=== PATIENT | female | born 1990 | race Caucasian/White ===

== ENCOUNTER 2017-08-08 13:02 | Inpatient (IN) | payer MEDICAID, OTHER ==
[2017-08-08] MEDS ORDERED: STADOL IV PRN (14:59)
[2017-08-08] MEDS ORDERED: BRETHINE SUB-Q PRN (14:59)
[2017-08-08] MEDS ORDERED: BRETHINE IVP PRN (14:59)
[2017-08-08] MEDS ORDERED: MINERAL OIL PO PRN (14:59)
[2017-08-08] MEDS ORDERED: ePHEDrine SULFATE IV PRN ×2 (14:59→21:50)
[2017-08-08] MEDS ORDERED: XYLOCAINE 2% INFILTRATI ONE (14:59)
[2017-08-08] MEDS ORDERED: SUBLIMAZE IV PRN (14:59)
[2017-08-08] MEDS ORDERED: PITOCin/NS 20 UNIT/1000ML DRIP 20 UNITS/1,000 ML BAG IV SCH (15:00)
--- NOTE | 2017-08-08 15:08 | History and Physical Report ---
History of Present Illness Date of examination: 08/08/17 Date of admission: 08/08/17 13:02 Chief complaint: Leaking Fluid History of present illness: Patient was seen at the clinic today for routine OB visit with c/o leaking fluid intermittently x6 days. She didn't f/u for evaluation because she attributed it to vaginal discharge. She had +ferning, + nitrazine and pooling during speculum exam. She denies fever or palpitations. She reports frequent but irregular ctxs q 5 to 30 mins since 3am. She denies vaginal bleeding. She is GBS positive. Past History Past Medical History: no pertinent history Past Surgical History: no surgical history Family/Genetic History: none Social history: no significant social history - Obstetrical History Expected Date of Delivery: 08/15/17 Actual Gestation: 39 Week(s) 0 Day(s) : 6 Para: 2 Hx # Term Pregnancies: 2 Number of Pregnancies: 0 Spontaneous Abortions: 2 Induced : 1 Number of Living Children: 2 Medications and Allergies Allergies Allergy/AdvReac Type Severity Reaction Status Date / Time No Known Allergies Allergy Verified 10/26/13 06:09 Home Medications Medication Instructions Recorded Confirmed Last Taken Type Fluconazole [Fluconazole] 150 mg PO ONCE 10/26/13 08/08/17 Unknown History Ondansetron [Zofran Odt] 8 mg PO DAILY 10/26/13 08/08/17 Unknown History Pnv with Ca,No.71/Iron/FA 27.08 mg PO DAILY 10/26/13 08/08/17 08/07/17 20:00 History [Prenaplus Tablet] Ibuprofen [Motrin 800 MG tab] 800 mg PO Q8HR PRN #30 tablet 03/01/16 08/08/17 Unknown Rx Active Meds: Active Medications Influenza Virus Vaccine Quadrival (Fluarix Quad 2776-7362(36 Mos+) 0.5 ml IM .ONCE ONE Stop: 08/09/17 12:01 Review of Systems All systems: negative - Vital Signs Vital signs: Vital Signs Temp Pulse Resp BP 98.2 F 87 18 117/71 08/08/17 13:58 08/08/17 13:58 08/08/17 13:58 08/08/17 13:58 Temp Pulse Resp BP Pulse Ox 98.2 F 87 18 117/71 08/08/17 13:58 08/08/17 14:02 08/08/17 13:58 08/08/17 14:02 - Physical Exam Breasts: Positive: deferred Cardiovascular: Regular rate, Normal S1, Normal S2 Lungs: Positive: Clear to auscultation, Normal air movement Abdomen: Positive: normal appearance, soft Genitourinary (Female): Positive: normal external genitalia, normal perenium Vulva: both: normal Vagina: Positive: normal moisture Uterus: Positive: normal size, normal contour Anus/Rectum: Positive: normal perianal skin Extremities: Positive: normal Deep Tendon Reflex Grade: Normal +2 - Obstetrical FHR: auscultation normal, category 1 FHR comments: baseline 140, mod dalia, + accels, no decels Uterine Contraction Monitor Mode: External Cervical Dilatation: 3.5 Cervical Effacement Percentage: 50 station: -3 Uterine Contraction Frequency (min): Irritability Results All other labs normal. Assessment and Plan A: 27yo G 6 P 2 0 3 2 at 39w0d by LMP SROM Category I FHR GBS positive No active Labor P: Admit to L&D Start antibiotics for GBS prophylaxis Start Oxytocin for labor augmentation Anticipate vaginal delivery
[2017-08-08 15:14] LABS: Hematocrit 37.1 % (30.3-42.9); Hemoglobin 12.1 gm/dl (10.1-14.3); Mean Corpuscular HGB Conc 33 % (30-34); Mean Corpuscular Hemoglobin 30 pg (28-32); Mean Corpuscular Volume 92 fl (79-97); Platelet Count 187 K/mm3 (140-440); Red Blood Count 4.03 M/mm3 (3.65-5.03); Red Cell Distribution Width 14.3 % (13.2-15.2); White Blood Count 9.9 K/mm3 (4.5-11.0)
[2017-08-08] MEDS ORDERED: POLYCILLIN/NS 2 GM/100 ML 2 GM/100 ML BAG IV ONE (15:30)
[2017-08-08] MEDS: LACTATED RINGERS 1,000 ML IV SCH ×3 (15:54→22:02)
[2017-08-08] MEDS: PITOCin/NS 30 UNIT/500ML 30 UNITS/500 ML BAG IV SCH ×8 (16:57→22:27)
--- NOTE | 2017-08-08 17:46 | Event Note ---
Date: 08/08/17 Assumed care of patient today at 16:45. Patient has had prolonged spontaneous rupture of membranes (pt. is unsure exactly when her water broke). Pitocin has been started for augmentation of labor. Ampicillin is being given for GBS prophylaxis. FHR baseline 155 with moderate variability and accelerations. SVE 5 /50/-1/cephalic. Consulted with Dr. Romero re: prolonged rupture of membranes and he states he agrees with plan of care.
[2017-08-08] MEDS: POLYCILLIN/NS 1 GM/50 ML 1 GM/50 ML BAG IV SCH (19:09)
[2017-08-08] MEDS ORDERED: NARCAN 2 MG/2 ML IV PRN (21:50)
--- NOTE | 2017-08-08 21:50 | Anesthesia Consultation ---
Anesthesia Consult and Med Hx Date of service: 08/08/17 - Airway Anesthetic Teeth Evaluation: Good ROM Head & Neck: Adequate Mental/Hyoid Distance: Adequate Mallampati Class: Class II Intubation Access Assessment: Probably Good - Pulmonary Exam CTA: Yes - Cardiac Exam Cardiac Exam: RRR - Pre-Operative Health Status ASA Pre-Surgery Classification: ASA2 Proposed Anesthetic Plan: Epidural - Pulmonary Hx Asthma: No COPD: No Hx Pneumonia: No - Cardiovascular System Hx Hypertension: No - Central Nervous System Hx Seizures: No Hx Psychiatric Problems: No - Endocrine Hx Renal Disease: No Hx End Stage Renal Disease: No Hx Hypothyroidism: No Hx Hyperthyroidism: No - Hematic Hx Anemia: No Hx Sickle Cell Disease: No - Other Systems Hx Alcohol Use: Yes (none during )
[2017-08-08] MEDS ORDERED: fentaNYL-BUPIV 2 MCG/ML-0.125% 200 MCG/100 ML BAG EPIDURAL SCH (22:00)
[2017-08-08] MEDS ORDERED: ZOFRAN ONE (23:11)
[2017-08-08] MEDS ORDERED: ZOFRAN IM ONE (23:14)
[2017-08-09] MEDS: POLYCILLIN/NS 1 GM/50 ML 1 GM/50 ML BAG IV SCH (00:04)
[2017-08-09] MEDS: PITOCin/NS 30 UNIT/500ML 30 UNITS/500 ML BAG IV SCH ×2 (00:43→01:39)
[2017-08-09] MEDS ORDERED: DULCOLAX PR PRN (04:24)
[2017-08-09] MEDS ORDERED: NORCO 5/325 PO PRN (04:24)
[2017-08-09] MEDS ORDERED: MILK OF MAGNESIA PO PRN (04:24)
[2017-08-09] MEDS ORDERED: TUCKS PAD TP PRN (04:24)
--- NOTE | 2017-08-09 04:35 | Procedure Note ---
OB Delivery Note - Delivery Date of Delivery: 08/09/17 Surgeon: HARLAN LIZARRAGA Estimated blood loss: 300cc - Vaginal Delivery presentation: vertex Delivery position: OA Intrapartum events: none Delivery induction: none Delivery augmentation: pitocin Delivery monitor: external FHT, external uterine Route of delivery: Delivery placenta: spontaneous Delivery cord: 3 umbilical vessels Episiotomy: none Delivery laceration: none Anesthesia: epidural Delivery comments: Spontaneous vaginal delivery of liveborn male infant weighing 7 lb. 7 oz. over intact perineum with apgars of 8/9. Baby was born easily and without difficulty and was placed immediately on patient's chest after . Spontaneous cry and respirations. Baby bulb suctioned. 3 vessel cord double clamped and cut. Baby taken to radiant warmer and NICU team who had been called to delivery due to prolonged spontaneous rupture of membranes. Spontaneous delivery of intact placenta and membranes by galloway mechanism. EBL 300 ml. Fundus firm and midline. Pitocin to IV fluids after delivery of placenta. Vaginal sweep negative. No lacerations noted on careful inspection of vulva and perineum. Sponge count correct. Mother and baby stable in birthing room.
[2017-08-09] MEDS ORDERED: SODIUM CHLORIDE FLUSH SYRINGE 10 ML IV NR (05:00)
[2017-08-09] MEDS: MOTRIN PO SCH ×3 (05:49→23:23)
[2017-08-09] MEDS ORDERED: M-M-R II VACCINE SUB-Q ONE ×2 (06:20→13:15)
[2017-08-09] MEDS ORDERED: Fluarix Quad 2017-2018(36 MOS+ IM ONE ×2 (12:00→13:15)
[2017-08-09 16:22] LABS: Hematocrit 31.1 % (30.3-42.9); Hemoglobin 10.4 gm/dl (10.1-14.3)
[2017-08-10] MEDS: MOTRIN PO SCH ×3 (04:57→22:09)
[2017-08-10] MEDS ORDERED: BOOSTRIX IM ONE (06:00)
--- NOTE | 2017-08-10 12:51 | Progress Note ---
Assessment and Plan A: day 1 S/P . Anemia. P: Supplement with iron. Depo Provera prior to hospital discharge. Discussed with patient warning signs and comfort measures. Advised pt. to avoid IC, avoid driving, avoid lifting or heavy housework. Advised pt. to follow up with [facility] in 6 weeks. Advised pt. to continue her vitamins and iron at home. Pt. voiced understanding of the above instructions. Subjective - Subjective Date of service: 08/10/17 Principal diagnosis: day 1 S/P Interval history: day 1 S/P viable male infant. Patient is doing well. She is voiding without difficulty and ambulating well. She is tolerating a regular diet without nausea or vomiting. Patient reports a small amount of lochia with no large clots. Patient denies headache, chest pain, cough, shortness of breath , nausea or vomiting, abdominal pain, leg pain, heavy vaginal bleeding, or symptoms of depression. Patient wants to be discharged tomorrow AM GIRMA. Patient wants Depo Provera for control. Patient reports: appetite normal, voiding normally, pain well controlled, flatus , ambulating normally [place]: doing well Objective - Vital Signs Latest vital signs: Vital Signs Temp Pulse Resp BP BP Pulse Ox 08/10/17 07:33 98.0 F 76 18 107/66 99 08/10/17 04:57 18 08/10/17 00:40 98.7 F 77 18 109/67 08/09/17 23:23 18 08/09/17 16:34 98.2 F 85 18 109/70 99 Intake and Output 08/09/17 08/10/17 08/10/17 23:59 07:59 15:59 Intake Total 480 260 Balance 480 260 Intake: Oral 240 Intake, Free Water 240 260 Other: Total, Intake Amount 240 # Voids Void 1 2 - Exam Cardiovascular: Present: Regular rate, Normal S1, Normal S2 Lungs: Present: Clear to auscultation Abdomen: Present: normal appearance, soft, normal bowel sounds. Absent: distention, tenderness, guarding, rigidity Uterus: Present: normal, firm, fundal height below umbilicus. Absent: bogginess , tenderness Extremities: Present: normal. Absent: tenderness, edema
--- NOTE | 2017-08-10 12:55 | Discharge Summary ---
Providers - Providers Date of Admission: 08/08/17 13:02 Date of discharge: 08/11/17 Attending physician: LIZBET MARRERO MD None Primary care physician: LIZBET MARRERO MD Hospitalization Reason for admission: active labor Delivery: Episiotomy: none Laceration: none Other procedures: none complications: none Discharge diagnosis: IUP at term delivered baby: male Pertinent studies: Labs Hospital course: Normal hospital course Condition at discharge: Good Disposition: DC-01 TO HOME OR SELFCARE - Discharge Diagnoses (1) Post term , delivered Status: Acute Plan - Provider Discharge Summary Activity: routine, no sex for 6 weeks, no heavy lifting 4 weeks, no strenuous exercise Diet: routine Instructions: routine Additional instructions: Call your doctor immediately for: * Fever > 100.5 * Heavy vaginal bleeding ( >1 pad per hour) * Severe persistent headache * Shortness of breath * Reddened, hot, painful area to leg or breast - Follow up plan Follow up: LIZBET MARRERO MD [Primary Care Provider] - 6 Weeks
[2017-08-10] MEDS: FEOSOL PO SCH ×2 (16:31→22:08)
[2017-08-11] MEDS: MOTRIN PO SCH (04:11)
[2017-08-11] MEDS ORDERED: DEPO-PROVERA (CONTRACEPTION) IM ONE (08:00)
[2017-08-11] MEDS: FEOSOL PO SCH ×2 (08:42→08:46)
[2017-08-11 09:57] VITALS: BP 105/72
== END 2017-08-11 10:20 | disposition home or self-care (01) | DRG 775 ==
LOC: LD 13:02 → OB 08-09 05:34
PROVIDERS: ADMIT Obstetrics & Gynecology; ATTEND Obstetrics & Gynecology
PROC: 10E0XZZ Delivery of Products of Conception, External Approach (ICD-10-PCS; principal; 2017-08-09)
PROC: 3E0R3BZ Introduction of Anesthetic Agent into Spinal Canal, Percutaneous Approach (ICD-10-PCS; 2017-08-09)
PROC: 00HU33Z Insertion of Infusion Device into Spinal Canal, Percutaneous Approach (ICD-10-PCS; 2017-08-09)
PROC: 3E0234Z Introduction of Serum, Toxoid and Vaccine into Muscle, Percutaneous Approach (ICD-10-PCS; 2017-08-09)
DX: O99.824 Streptococcus B carrier state complicating childbirth (principal); Z3A.39 39 weeks gestation of pregnancy; Z37.0 Single live birth; O90.81 Anemia of the puerperium; D64.9 Anemia, unspecified
CPT/HCPCS: 36415; 85014; 85018; 85027; 86592; 86850; 86900; 86901; 90471; 90472; 90686; 90715; 99211; G0463; J0290; J1050; J2405; J2590; J7120

== ENCOUNTER 2019-03-15 12:06 | Outpatient (CLI) | payer MEDICAID ==
[2019-03-15 13:06] LABS: Bilirubin,Urine NEG (Negative); Blood,Urine SM (Negative); Color,Urine Yellow (Yellow); Mucus,Urine FEW /HPF; Protein,Urine <15 mg/dL mg/dL (Negative); Urobilinogen,Urine < 2.0 mg/dL (<2.0); WBC,Urine < 1.0 /HPF (0.0-6.0)
[2019-03-15] MEDS ORDERED: LACTATED RINGERS 1,000 ML ONE (14:25)
[2019-03-15] MEDS ORDERED: BRETHINE SUB-Q ONE (17:28)
[2019-03-15] MEDS ORDERED: LACTATED RINGERS 1,000 ML IV ONE (17:50)
[2019-03-15] MEDS ORDERED: LACTATED RINGERS 1,000 ML IV SCH (18:00)
[2019-03-15 18:39] VITALS: BP 108/55
== END 2019-03-15 19:20 | disposition home or self-care (01) ==
LOC: TRG 12:06
PROVIDERS: ATTEND Obstetrics & Gynecology
DX: O60.03 Preterm labor without delivery, third trimester (principal); O26.893 Other specified pregnancy related conditions, third trimester; R11.0 Nausea; Z3A.32 32 weeks gestation of pregnancy
CPT/HCPCS: 59025; 81001; 96360; 96361; 96372; J3105; J7120

== ENCOUNTER 2019-04-20 16:51 | Outpatient (CLI) | payer MEDICAID ==
[2019-04-20 18:05] LABS: Basophils # (Auto) 0.1 K/mm3 (0.0-0.1); Basophils % (Auto) 0.6 % (0.0-1.8); Eosinophils # (Auto) 0.3 K/mm3 (0.0-0.4); Hematocrit 34.6 % (30.3-42.9); Hemoglobin 11.9 gm/dl (10.1-14.3); Lymphocytes # (Auto) 2.7 K/mm3 (1.2-5.4); Lymphocytes % (Auto) 25.8 % (13.4-35.0); Mean Corpuscular HGB Conc 34 % (30-34); Mean Corpuscular Volume 88 fl (79-97); Monocytes # (Auto) 0.6 K/mm3 (0.0-0.8); Platelet Count 164 K/mm3 (140-440); Red Blood Count 3.93 M/mm3 (3.65-5.03); Red Cell Distribution Width 14.2 % (13.2-15.2)
[2019-04-20 18:18] LABS: Bilirubin,Urine NEG (Negative); Blood,Urine NEG (Negative); Color,Urine Straw (Yellow); Mucus,Urine FEW /HPF; Protein,Urine <15 mg/dL mg/dL (Negative); Urobilinogen,Urine < 2.0 mg/dL (<2.0); WBC,Urine < 1.0 /HPF (0.0-6.0)
[2019-04-20 18:24] LABS: Alanine Aminotransferase 7 units/L (7-56); Albumin 3.5 g/dL (3.9-5); BUN/Creatinine Ratio 17; Blood Urea Nitrogen 5 mg/dL (7-17); Calcium 8.8 mg/dL (8.4-10.2); Hemolysis Index 5; Uric Acid 3.1 mg/dL (3.5-7.6)
[2019-04-20 19:55] VITALS: BP 114/73
== END 2019-04-20 20:31 | disposition home or self-care (01) ==
LOC: TRG 16:51 → LD 16:52 → TRG 20:31
PROVIDERS: ATTEND Obstetrics & Gynecology
DX: O47.1 False labor at or after 37 completed weeks of gestation (principal); Z3A.38 38 weeks gestation of pregnancy
CPT/HCPCS: 36415; 80053; 81001; 84550; 85025

== ENCOUNTER 2019-04-29 21:11 | Inpatient (IN) | payer MEDICAID ==
--- NOTE | 2019-04-29 23:35 | Ultrasound Report ---
OB ultrasound limited. 04/29/2019. HISTORY: Ruptured membranes. FINDINGS: A single viable intrauterine is in the cephalic position. heart tones are 1 62 bpm. Amniotic fluid index is 9.6 cm. IMPRESSION: Amniotic fluid index is 9.6 cm. Signer Name: Willie Aleman MD Signed: 04/29/2019 11:31 PM Workstation Name: [id number]
[2019-04-30] MEDS ORDERED: MINERAL OIL PO PRN (00:43)
[2019-04-30] MEDS ORDERED: AMPICILLIN/NS 2 GM/100 ML 2 GM/100 ML BAG IV ONE (00:43)
[2019-04-30] MEDS ORDERED: BRETHINE SUB-Q PRN (00:43)
[2019-04-30] MEDS ORDERED: XYLOCAINE 2% INFILTRATI ONE (00:43)
[2019-04-30] MEDS ORDERED: PITOCin/NS 30 UNIT/500ML 30 UNITS/500 ML BAG IV SCH (01:00)
[2019-04-30] MEDS ORDERED: PITOCin/NS 20 UNIT/1000ML DRIP 20 UNITS/1,000 ML BAG IV SCH (01:00)
[2019-04-30] MEDS: LACTATED RINGERS 1,000 ML IV SCH ×2 (01:01→04:23)
[2019-04-30 01:23] LABS: Hematocrit 32.7 % (30.3-42.9); Hemoglobin 11.1 gm/dl (10.1-14.3); Mean Corpuscular HGB Conc 34 % (30-34); Mean Corpuscular Volume 87 fl (79-97); Red Blood Count 3.75 M/mm3 (3.65-5.03); Red Cell Distribution Width 14.2 % (13.2-15.2)
[2019-04-30 01:24] LABS: Platelet Count 182 K/mm3 (140-440)
[2019-04-30] MEDS: STADOL IV PRN ×2 (02:54→04:29)
[2019-04-30] MEDS ORDERED: AMPICILLIN/NS 1 GM/50 ML 1 GM/50 ML BAG IV SCH (04:45)
[2019-04-30] MEDS ORDERED: NARCAN 2 MG/2 ML IV PRN (04:51)
[2019-04-30] MEDS ORDERED: fentaNYL-BUPIV 2 MCG/ML-0.125% 200 MCG/100 ML BAG EPIDURAL SCH (05:00)
[2019-04-30] MEDS ORDERED: TUCKS PAD TP PRN (05:26)
[2019-04-30] MEDS ORDERED: TYLENOL PO PRN (05:26)
[2019-04-30] MEDS ORDERED: DERMOPLAST TP PRN (05:26)
[2019-04-30] MEDS ORDERED: MILK OF MAGNESIA PO PRN (05:26)
[2019-04-30] MEDS ORDERED: PHENERGAN PO PRN (05:26)
[2019-04-30] MEDS ORDERED: BENADRYL PO PRN (05:26)
[2019-04-30] MEDS ORDERED: LANSINOH TP PRN (05:26)
[2019-04-30] MEDS ORDERED: DULCOLAX PR PRN (05:26)
[2019-04-30] MEDS ORDERED: NORCO 5/325 PO PRN (05:26)
[2019-04-30] MEDS ORDERED: ZOFRAN IV PRN (05:26)
--- NOTE | 2019-04-30 05:38 | Procedure Note ---
OB Delivery Note - Delivery Date of Delivery: 04/30/19 (05:02) Surgeon: JOHANNA CHAUDHARI (CHACHO) Estimated blood loss: 100cc - Vaginal Delivery presentation: vertex Delivery position: OA Delivery induction: none Delivery augmentation: pitocin Delivery monitor: external FHT, external uterine Route of delivery: (05:02) Delivery placenta: spontaneous (05:09) Delivery cord: 3 umbilical vessels Delivery laceration: none Anesthesia: intravenous Delivery comments: viable female infant SARWAT over intact perineum at 05:02. Vigorous infant placed [id number] on maternal abdomen. NICU and RT present for delivery for recent narcotic administration. Delayed cord clamping then cut by FOB with my guidance. Spontaneous galloway delivery of intact placenta at 05:09. 3VC. FF@U-2. No tears or lacerations. EBL 100. and mother left in stable condition in L&D. - A at 1 minute: 8 at 5 minutes: 9 Gender: Female (7lbs 5.3oz, 3326 grams, 19")
[2019-04-30] MEDS ORDERED: SODIUM CHLORIDE FLUSH SYRINGE 10 ML IV PRN (06:00)
--- NOTE | 2019-04-30 06:18 | History and Physical Report ---
History of Present Illness Date of examination: 04/30/19 Date of admission: 04/29/19 23:58 Chief complaint: Intense labor pains and LOF History of present illness: 29 yo Fe , JAQUELIN 05/04/2019 (LMP) 68guctq6 days presents with questionable LOF. MINH 9.6. After walking it is determined she is ruptured. Initiated early care with [facility] at 8w1d. Pt reported alcohol use prior to knowing she was . She was seen and cleared by c ardiology for syncope event (Benign 24hr halter monitor). 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 denies: smoking, alcohol abuse, prescription drug abuse, IV drug use - Obstetrical History Expected Date of Delivery: 05/04/19 Actual Gestation: 39 Week(s) 3 Day(s) : 7 Para: 3 Hx # Term Pregnancies: 3 Number of Pregnancies: 0 Spontaneous Abortions: 2 Induced : 1 Number of Living Children: 3 #1 Gender: Female year: 2,011 Method of Delivery: Vaginal Gestational age at delivery: 41 Complications: none #2 Gender: Female year: 2,014 Method of Delivery: Vaginal Gestational age at delivery: 40 Complications: none #3 Gender: Male year: 2,017 Method of Delivery: Vaginal Gestational age at delivery: 40 Complications: none Medications and Allergies Allergies Allergy/AdvReac Type Severity Reaction Status Date / Time nifedipine [From Procardia] Allergy Palpations, Verified 04/29/19 22:35 Dizziness, Headache Home Medications Medication Instructions Recorded Confirmed Last Taken Type Pnv with Ca,No.71/Iron/FA 27.08 mg PO DAILY 10/26/13 04/29/19 08/07/17 20:00 His tory [Prenaplus Tablet] Famotidine/Ca Carb/Mag Hydrox 1 each PO DAILY 03/15/19 04/29/19 Unknown History [Pepcid Complete Tablet Chew] Active Meds: Active Medications Acetaminophen (Tylenol) 650 mg PO Q4H PRN PRN Reason: Pain MILD(1-3)/Fever >100.5/MOHR Acetaminophen/Hydrocodone Bitart ([place] 5/325) 2 each PO Q6H PRN PRN Reason: Pain, Moderate (4-6) Benzocaine/Menthol (Dermoplast) 1 spray TP PRN PRN PRN Reason: Hemorrhoids Bisacodyl (Dulcolax) 10 mg NH BID PRN PRN Reason: Constipation Butorphanol Tartrate (Stadol) 2 mg IV Q2H PRN PRN Reason: Labor Pain Last Admin: 04/30/19 04:29 Dose: 2 mg Documented by: Diphenhydramine HCl (Benadryl) 25 mg PO Q6H PRN PRN Reason: Itching Ephedrine Sulfate (Ephedrine Sulfate) 10 mg IV Q2M PRN PRN Reason: Hypotension Oxytocin/Sodium Chloride (Pitocin/Ns 20 Unit/1000ml Drip) 20 units in 1,000 mls @ 125 mls/hr IV DIRECT PLACIDO Last Admin: 04/30/19 05:24 Dose: 125 mls/hr Documented by: Oxytocin/Sodium Chloride (Pitocin/Ns 30 Unit/500ml) 30 units in 500 mls @ 1 mls/hr IV TITR PLACIDO; Protocol Last Admin: 04/30/19 01:57 Dose: 1 mls/hr, 1 mls/hr Documented by: Lactated Ringer's (Lactated Ringers) 1,000 mls @ 125 mls/hr IV DIRECT PLACIDO Last Admin: 04/30/19 04:23 Dose: 125 mls/hr Documented by: Ampicillin Sodium (Ampicillin/Ns 1 Gm/50 Ml) 1 gm in 50 mls @ 100 mls/hr IV Q4HR PLACIDO; Protocol Last Admin: 04/30/19 04:22 Dose: 100 mls/hr Documented by: Fentanyl/Bupivacaine/Sodium Chlor (Fentanyl-Bupiv 2 Mcg/Ml-0.125%) 200 mcg in 100 mls @ 12 mls/hr EPIDURAL TITR PLACIDO; Protocol Ibuprofen (Ibuprofen) 600 mg PO Q6H PLACIDO Magnesium Hydroxide (Milk Of Magnesia) 30 ml PO HS PRN PRN Reason: Constipation Mineral Oil (Mineral Oil) 30 ml PO QHS PRN PRN Reason: Constipation Multi-Ingredient Ointment (Lansinoh) 1 applic TP PRN PRN PRN Reason: Sore Nipples Naloxone HCl (Narcan 2 Mg/2 Ml) 0.2 mg IV Q5M PRN PRN Reason: Respiratory sedation Ondansetron HCl (Zofran) 4 mg IV Q8H PRN PRN Reason: Nausea And Vomiting Promethazine HCl (Phenergan) 25 mg PO Q6H PRN PRN Reason: Nausea And Vomiting Sodium Chloride (Sodium Chloride Flush Syringe 10 Ml) 10 ml IV PRN PRN PRN Reason: LINE FLUSH Terbutaline Sulfate (Brethine) 0.25 mg SUB-Q ONCE PRN PRN Reason: Hyperstimulation/Hypertonicity Witch [place]/Glycerin (Tucks Pad) 1 each TP PRN PRN PRN Reason: Hemorrhoid/cleansing/soothing Review of Systems Eyes: normal appearance Cardiovascular: no chest pain, no shortness of breath Respiratory: no shortness of breath Gastrointestinal: abdominal pain (Contractions), no nausea, no vomiting, no diarrhea Genitourinary: normal appearance, leakage of fluid, contractions, no vaginal bleeding, no genital sores Rectal Exam: hemorrhoids - Vital Signs Vital signs: Vital Signs Pulse BP 120 H 103/67 04/29/19 21:18 04/29/19 21:18 Temp Pulse Resp BP Pulse Ox 97.6 F 106 H 18 101/55 95 04/30/19 02:38 04/30/19 06:04 04/30/19 04:29 04/30/19 05:56 04/30/19 06:04 - Physical Exam Breasts: Positive: normal Cardiovascular: Regular rate, Normal S1, Normal S2, No murmurs Abdomen: Positive: normal appearance, soft, normal bowel sounds. Negative: distention Genitourinary (Female): Positive: normal external genitalia, normal perenium Vulva: both: normal Vagina: Negative: normal moisture (LOF per RN) Uterus: Positive: enlarged (Gravid; S=D) Anus/Rectum: Positive: normal perianal skin Extremities: Positive: normal Deep Tendon Reflex Grade: Normal +2 - Obstetrical FHR: category 1 Uterine Contraction Monitor Mode: External Cervical Dilatation: 3 (on admission; Complete when i arrived for delivery) Cervical Effacement Percentage: 75 station: -2 Uterine Contraction Pattern: Regular Uterine Tone Measurement Phase: Resting Uterine Contraction Intensity: Moderate Results Result Diagrams: 04/30/19 00:25 Abnormal lab results 04/30/19 Range/Units 00:25 WBC 15.8 H (4.5-11.0) K/mm3 All other labs normal. Assessment and Plan A: Term IUP at 39w4d SROM 04/30 @20:22 Active labor Category 1 tracing GBS positive P: Admit to L&D; Routine labor orders May have IV pain med/epidural GBS prophylaxis Anticipate
[2019-04-30] MEDS: IBUPROFEN PO SCH ×3 (10:03→23:36)
[2019-04-30 17:03] LABS: Hematocrit 32.8 % (30.3-42.9); Hemoglobin 10.7 gm/dl (10.1-14.3)
[2019-05-01] MEDS: IBUPROFEN PO SCH ×5 (05:15→21:00)
[2019-05-01] MEDS ORDERED: BOOSTRIX IM ONE (06:00)
--- NOTE | 2019-05-01 11:37 | Progress Note ---
Assessment and Plan A: day 1 S/P spontaneous vaginal delivery. Anemia secondary to and blood loss. P: Supplement with oral iron. Anticipate discharge tomorrow if patient continues to do well. Subjective - Subjective Date of service: 05/01/19 Principal diagnosis: day 1 S/P spontaneous vaginal delivery Interval history: day 1 S/P spontaneous vaginal delivery. Doing well. Patient reports a small amount of lochia. Voiding without difficulty, ambulating well, tolerating a regular diet. Patient denies headache, chest pain, shortness of breath, leg pain, abdominal pain, or nausea/vomiting. Patient wants to use Depo Provera for contraception at hospital discharge. Patient reports: appetite normal, voiding normally, pain well controlled, flatus, ambulating normally, no dizzy ambulation, no nauseated [place]: doing well Objective - Vital Signs Latest vital signs: Vital Signs Temp Pulse Resp BP BP Pulse Ox 05/01/19 08:00 97.8 F 94 H 18 110/73 05/01/19 05:15 18 05/01/19 00:00 98.7 F 72 19 114/68 04/30/19 23:36 18 04/30/19 19:30 98.8 F 75 16 108/68 04/30/19 16:33 97.6 F 76 16 103/69 96 04/30/19 12:41 97.6 F 79 16 93/61 97 Intake and Output 04/30/19 05/01/19 05/01/19 23:59 07:59 15:59 Intake Total 120 Balance 120 Intake: Oral 120 Other: Total, Intake Amount 120 - Exam Cardiovascular: Present: Regular rate, Normal S1, Normal S2 Lungs: Present: Clear to auscultation Abdomen: Present: normal appearance, soft. Absent: distention, tenderness, guarding, rigidity Uterus: Present: normal, firm, fundal height below umbilicus. Absent: bogginess, tenderness Extremities: Present: normal. Absent: tenderness, edema
[2019-05-01] MEDS: FEOSOL PO SCH ×2 (13:21→21:00)
[2019-05-02] MEDS: IBUPROFEN PO SCH ×3 (03:30→09:12)
[2019-05-02] MEDS: FEOSOL PO SCH (09:12)
--- NOTE | 2019-05-02 16:29 | Progress Note ---
Assessment and Plan A: day 2 S/P spontaneous vaginal delivery. Anemia secondary to and blood loss. P: Discharge patient home today (may room in with baby here until baby is discharged). Discussed with patient discharge instructions and warning signs. Advised patient to continue vitamins and iron supplements at home. Advised patient to avoid intercourse, lifting, heavy housework, driving. Advised patient to follow up at [facility] in 6 weeks. Subjective - Subjective Date of service: 05/02/19 Principal diagnosis: day 2 S/P spontaneous vaginal delivery Interval history: day 2 S/P spontaneous vaginal delivery. Doing well. Patient reports a small amount of lochia. Voiding without difficulty, ambulating well, tolerating a regular diet. Patient denies headache, chest pain, shortness of breath, cough, dizziness, leg pain, abdominal pain, or nausea/vomiting. Patient wants to use Depo Provera for contraception at hospital discharge. Patient reports: appetite normal, voiding normally, pain well controlled, flatus, ambulating normally, no dizzy ambulation, no nauseated [place]: doing well Objective - Vital Signs Latest vital signs: Vital Signs Temp Pulse Resp BP 05/02/19 07:57 98.2 F 68 18 108/68 05/02/19 03:30 18 05/02/19 00:30 98.6 F 64 18 104/72 05/01/19 21:00 18 Intake and Output 05/02/19 05/02/19 05/02/19 07:59 15:59 23:59 Intake Total 480 Balance 480 Intake: Oral 480 Other: Total, Intake Amount 480 - Exam Cardiovascular: Present: Regular rate, Normal S1, Normal S2, No murmurs Lungs: Present: Clear to auscultation Abdomen: Present: normal appearance, soft, normal bowel sounds. Absent: distention, tenderness, guarding, rigidity Uterus: Present: normal, firm, fundal height below umbilicus. Absent: bogginess, tenderness Extremities: Present: normal. Absent: tenderness, edema
[2019-05-02] MEDS ORDERED: DEPO-PROVERA (CONTRACEPTION) IM ONE ×2 (16:41→19:19)
[2019-05-02 16:43] VITALS: BP 105/50
--- NOTE | 2019-05-02 16:48 | Discharge Summary ---
Providers - Providers Date of Admission: 04/29/19 23:58 Date of discharge: 05/02/19 Attending physician: LIZBET MARRERO MD None Primary care physician: LIZBET MARRERO MD Hospitalization Reason for admission: rupture of membranes Delivery: Episiotomy: none Laceration: none Other procedures: none complications: none Discharge diagnosis: IUP at term delivered [place] baby: female Pertinent studies: Labs Hospital course: Normal hospital course. Condition at discharge: Good Disposition: DC-01 TO HOME OR SELFCARE - Discharge Diagnoses (1) Term delivered Status: Acute (2) Anemia due to blood loss Status: Acute Plan - Provider Discharge Summary Activity: routine, no sex for 6 weeks, no heavy lifting 4 weeks, no strenuous exercise Diet: routine Instructions: routine Additional instructions: Continue taking your vitamins and iron supplements at home. Call your doctor immediately for: * Fever > 100.5 * Heavy vaginal bleeding ( >1 pad per hour) * Severe persistent headache * Shortness of breath * Reddened, hot, painful area to leg or breast - Follow up plan Follow up: LIZBET MARRERO MD [Primary Care Provider] - 6 Weeks
== END 2019-05-02 19:42 | disposition home or self-care (01) | DRG 775 ==
LOC: TRG 21:11 → LD 23:58 → OBSVTOIN 23:58 → TRG 23:58 → OB 04-30 07:56
PROVIDERS: ADMIT Obstetrics & Gynecology; ATTEND Obstetrics & Gynecology
PROC: 10E0XZZ Delivery of Products of Conception, External Approach (ICD-10-PCS; principal; 2019-04-30)
PROC: 3E0234Z Introduction of Serum, Toxoid and Vaccine into Muscle, Percutaneous Approach (ICD-10-PCS; 2019-05-01)
DX: O99.824 Streptococcus B carrier state complicating childbirth (principal); O99.02 Anemia complicating childbirth; D50.0 Iron deficiency anemia secondary to blood loss (chronic); Z3A.39 39 weeks gestation of pregnancy; Z79.899 Other long term (current) drug therapy; Z23 Encounter for immunization
CPT/HCPCS: 36415; 76815; 85014; 85018; 85027; 86592; 86850; 86900; 86901; 90471; 90715; G0378; A6250; J0290; J0595; J1050; J2590; J7120

== ENCOUNTER 2019-07-16 10:42 | Day surgery (SDC) | payer MEDICAID ==
--- NOTE | 2019-07-16 11:50 | Anesthesia Day of Surgery ---
Anesthesia Day of Surgery - Day of Surgery Patient Examined: Yes Patient H&P Reviewed: Yes Patient is NPO: Yes
[2019-07-16] MEDS ORDERED: ONDANSETRON 4 MG/2 ML INJ IV PRN (11:53)
[2019-07-16] MEDS ORDERED: fentaNYL 100 MCG/2 ML INJ IV PRN (11:53)
--- NOTE | 2019-07-16 11:53 | Anesthesia Consultation ---
Anesthesia Consult and Med Hx Date of service: 07/16/19 - Airway Anesthetic Teeth Evaluation: Good, Partials ROM Head & Neck: Adequate Mental/Hyoid Distance: Adequate Mallampati Class: Class II Intubation Access Assessment: Good - Pre-Operative Health Status ASA Pre-Surgery Classification: ASA1 Proposed Anesthetic Plan: General - Pulmonary Hx Asthma: No COPD: No Hx Pneumonia: No - Cardiovascular System Hx Hypertension: No Hx Cardia Arrhythmia: No (HX Palpitations-negative cardiac workup) - Central Nervous System Hx Seizures: No Hx Psychiatric Problems: No - Endocrine Hx Renal Disease: No Hx End Stage Renal Disease: No Hx Hypothyroidism: No Hx Hyperthyroidism: No - Hematic Hx Anemia: No Hx Sickle Cell Disease: No - Other Systems Hx Alcohol Use: Yes (Occas) Hx Cancer: No
[2019-07-16] MEDS ORDERED: CELECOXIB 200 MG CAP PO NR (12:00)
[2019-07-16] MEDS ORDERED: ACETAMINOPHEN 325 MG/10.15 ML ORAL LIQD UNIT DOSE PO NR (12:00)
[2019-07-16] MEDS ORDERED: MIDAZOLAM 2 MG/2 ML INJ IV NR (12:00)
[2019-07-16] MEDS ORDERED: LACTATED RINGERS 1,000 ML IV SCH (12:00)
[2019-07-16] MEDS ORDERED: PROPOFOL 200 MG/20 ML VIAL IV ONE (14:12)
[2019-07-16] MEDS ORDERED: ROCURONIUM 50 MG/5 ML INJ IV ONE (14:12)
[2019-07-16] MEDS ORDERED: HYDROmorphone 1 MG/1 ML INJ ONE (14:12)
[2019-07-16] MEDS ORDERED: LIDOCAINE MPF (2%) 20 MG/1 ML VIAL 5 ML ONE (14:13)
[2019-07-16] MEDS ORDERED: BUPIVACAINE/PF (0.5%) 5 MG/1 ML 30 ML VIAL INFILTRATI ONE ×2 (14:49→15:26)
[2019-07-16] MEDS ORDERED: ONDANSETRON 4 MG/2 ML INJ ONE (14:52)
[2019-07-16] MEDS ORDERED: dexAMETHasone 20 MG/5 ML VIAL ONE (14:52)
[2019-07-16] MEDS ORDERED: SODIUM CHLORIDE 0.9% IRR 1,500 ML BOTTLE IR ONE (15:26)
[2019-07-16] MEDS ORDERED: GLYCOPYRROLATE 0.4 MG/2 ML INJ ONE (15:41)
[2019-07-16] MEDS ORDERED: NEOSTIGMINE 10MG/10 ML INJ MDV ONE (15:41)
[2019-07-16] MEDS ORDERED: LACTATED RINGERS 1,000 ML ONE (15:42)
[2019-07-16] MEDS ORDERED: IBUPROFEN 600 MG TAB PO PRN (16:48)
[2019-07-16 16:52] VITALS: BP 110/65
--- NOTE | 2019-07-16 20:12 | Post Operative Note ---
Pre-op diagnosis: sterilization Post-op diagnosis: same Findings: normal uterus, tubes, ovaries. Normal pelvis. Normal general abdominal survey Procedure: Laparoscopic bilateral salpingectomies. This is a 29-year-old for who desires sterilization. Patient opted for the option of bilateral salpingectomies for the sterilization. Patient fully consented about the procedure prior to the procedure including the approximately 1 in 1000 chance of failure. Patient taken the operating room and prepped and draped usual fashion. Attention was first turned vaginally where a speculum was placed. Single toothed tenaculum applied into the lip of the cervix and an acorn uterine manipulator was placed. At this point attention was turned abdominally where a 5 mm incision was made in the umbilicus. The Veress needle was then successfully placed in the abdominal cavity and the abdomen was appropriately insufflated with CO2 gas. A 5 mm trocar was placed and placement was confirmed with the camera. At this point a general abdominal survey as well as some S assessment of the pelvis was done. Patient was placed in steep Trendelenburg position. Attention at this point was turned to the placement of the 11 mm trocar which was placed in the midline suprapubically about 2 cm superior to the pubic symphysis. The 11 mm trocar was then placed under direct visualization and was done successfully and without difficulty. Attention at this point was turned to the right fallopian tube which was resected from all its points of attachment using the 5 mm LigaSure device. The tube was successfully dissected off and was placed in the posterior cul-de-sac temporarily. Attention was then turned to the left side with the left fallopian tube was dissected away from all its attachments and was also successfully able to be resected. At this point each of the tubes were removed from the 11 mm trocar successfully and intact. At this point the pelvis was assessed again and good hemostasis was noted throughout. The abdomen was desufflated and good hemostasis was still noted. Abdomen was reinsufflated and the areas of dissection were covered with Surgicel. At this point the 11 mm trocar site was closed using the Glynn-Ed device using 0 Vicryl. This is done successfully and without difficulty. At this point the abdomen was fully desufflated. The 5 mm trocar was removed. The trocar sites were closed using 4-0 Monocryl in a subcuticular fashion. Local Marcaine was applied afterwards. Dressing was then applied after that. The uterine manipulator was removed vaginally and the procedure was concluded at this point. Patient tolerated the procedure well. All instrument and lap counts were correct. And patient was taken to recovery room in stable condition. Anesthesia: MERLINE Surgeon: JESSI RODNEY Estimated blood loss: minimal Pathology: list (bilateral tubes) Condition: stable Disposition: same day
--- NOTE | 2019-07-16 20:17 | Discharge Summary ---
Providers - Providers Date of Admission: 07/16/19 Date of discharge: 07/16/19 Attending physician: JESSI RODNEY Primary care physician: DANCE HALL HOST/HOSTESS Hospitalization Reason for admission: other (Bilateral salpingectomies sterilization) Condition at discharge: Good Disposition: DC-01 TO HOME OR SELFCARE - Discharge Diagnoses (1) S/P laparoscopy Status: Acute Plan - Discharge Medications Prescriptions: Ibuprofen [Motrin 600 MG tab] 600 mg PO Q8H PRN #30 tablet PRN Reason: Pain Acetaminophen/Codeine [Tylenol /Codeine # 3 tab] 1 tab PO Q6H PRN #20 tab PRN Reason: Pain , Severe (7-10) - Provider Discharge Summary Additional instructions: [] Smoking cessation referral if applicable(refer to patient education folder for contact #) [] Refer to [facility]'s [facility] Booklet Call your doctor immediately for: * Fever > 100.5 * Heavy vaginal bleeding ( >1 pad per hour) * Severe persistent headache * Shortness of breath * Reddened, hot, painful area to leg or breast * Drainage or odor from incision. * Keep incision clean and dry at all times and follow doctor's instructions regarding bathing/showering - Follow up plan Follow up: JESSI RODNEY MD [Staff Physician] - 14 Days PRIMARY CAREMD [Primary Care Provider] - 14 Days Forms: [facility] [place] [facility]
--- NOTE | 2019-07-17 10:58 | Post Anesthesia Evaluation ---
- Post Anesthesia Evaluation Patient Participated: Yes Airway Patent: Yes Stable Respiratory Function: Yes Nausea/Vomiting: No Temp > 96.8F: Yes Pain Manageable: Yes Adequeate Hydration: Yes Anesthesia Complications: No Block Receding Appropriately: Not Applicable Patient on Ventilator: No
== END 2019-07-16 17:40 | disposition home or self-care (01) ==
LOC: OR 10:42
PROVIDERS: ATTEND Obstetrics & Gynecology
DX: Z30.2 Encounter for sterilization (principal); D50.0 Iron deficiency anemia secondary to blood loss (chronic); G43.909 Migraine, unspecified, not intractable, without status migrainosus; Z88.8 Allergy status to other drugs, medicaments and biological substances; Z79.899 Other long term (current) drug therapy; Z87.891 Personal history of nicotine dependence; Z98.890 Other specified postprocedural states; Z72.89 Other problems related to lifestyle; Z80.8 Family history of malignant neoplasm of other organs or systems
CPT/HCPCS: 58661; 81025; 88302; J1100; J1170; J2250; J2405; J2704; J2710; J3010; J7120